=== PATIENT | male | born 1960 | race American Indian/Alaskan Native ===

== ENCOUNTER 2017-08-02 15:31 | Emergency (ER) | payer MEDICAID, OTHER ==
[2017-08-02] MEDS ORDERED: Bupivacaine 0.5% 30 ML SDV INFILT ONE (15:32)
[2017-08-02] MEDS ORDERED: Diphtheria,Pertussis(Acell),Tetanus Vaccine 0.5 ML SDV IM ONE (15:38)
[2017-08-02] MEDS ORDERED: cefTRIAXone 1,000 MG VIAL IM ONE (15:39)
--- NOTE | 2017-08-02 15:45 | EDM.PDOC ---
ED HPI GENERAL MEDICAL PROBLEM - General Time Seen by Provider: 08/02/17 15:31 Source of Information: Reports: Patient, Family History Limitations: Reports: No Limitations - History of Present Illness INITIAL COMMENTS - FREE TEXT/NARRATIVE: 57 y.o.w.f. came to the ed with his SO after he injured his left thumb on a table saw at home cutting escal[place]. No other acute medical issues. No N/V/D BP 127/67 Temp 36.9 Pulse ox 95 RR 18 Onset: Today Onset Date: 08/02/17 Onset Time: 15:00 Duration: Minutes:, Intermittent Location: Reports: Upper Extremity, Left Quality: Reports: Ache, Burning, Dull, Pressure, Stabbing, Throbbing Severity: Severe Improves with: Reports: None Worsens with: Reports: Movement Context: Reports: Trauma Associated Symptoms: Reports: No Other Symptoms right thumb Pain Score (Numeric/FACES): 10 - Related Data Allergies Allergy/AdvReac Type Severity Reaction Status Date / Time No Known Allergies Allergy Verified 08/02/17 15:44 Home Meds: Home Meds Cephalexin 500 mg PO Q6HR #20 tablet 08/02/17 [Rx] Hydrocodone/Acetaminophen [Hydrocodon-Acetaminophen 5-325] 1 - 2 tab PO Q4HR PRN #20 tablet 08/02/17 [Rx] Past Medical History Musculoskeletal History: Reports: Osteoarthritis Social & Family History - Tobacco Use Smoking Status *Q: Current Every Day Smoker Years of Tobacco use: 20 Packs/Tins Daily: 1 Used Tobacco, but Quit: No Second Hand Smoke Exposure: No - Recreational Drug Use Recreational Drug Use: No Review of Systems - Review of Systems Review Of Systems: See Below Constitutional: Reports: No Symptoms Eyes: Reports: No Symptoms Ears: Reports: No Symptoms Nose: Reports: No Symptoms Mouth/Throat: Reports: No Symptoms Respiratory: Reports: No Symptoms Cardiovascular: Reports: No Symptoms GI/Abdominal: Reports: No Symptoms Genitourinary: Reports: No Symptoms Musculoskeletal: Reports: Hand Pain Skin: Reports: Wound (leftthumb) Neurological: Reports: Paresthesia (left thumb) Psychiatric: Reports: No Symptoms ED EXAM, GENERAL - Physical Exam Exam: See Below Exam Limited By: No Limitations General Appearance: Alert, WD/WN, Mild Distress Eye Exam: Bilateral Eye: Normal Inspection Ears: Normal External Exam Ear Exam: Bilateral Ear: Auricle Normal Nose: Normal Inspection Throat/Mouth: Normal Inspection Head: Atraumatic Neck: Normal Inspection, Supple Respiratory/Chest: No Respiratory Distress Cardiovascular: Normal Peripheral Pulses, Regular Rate, Rhythm, No Edema, No Gallop, No JVD, No Murmur Peripheral Pulses: 1+: Femoral (L), Femoral (R) GI/Abdominal: Normal Bowel Sounds, Soft, Non-Tender, No Organomegaly (Male) Exam: Deferred Rectal (Males) Exam: Deferred Back Exam: Normal Inspection, Full Range of Motion Extremities: Normal Inspection, Normal Range of Motion, Non-Tender Neurological: Alert, Oriented, CN II-XII Intact, Normal Cognition, Normal Gait Psychiatric: Normal Affect, Normal Mood Skin Exam: Warm, Dry, Wound/Incision (left thumb, distal phalanx) Lymphatic: No Adenopathy Course - Vital Signs Text/Narrative:: 57 y.o.w.f. came to the ed with his SO after he injured his left thumb on a table saw at home cutting escal[employer]. No other acute medical issues. No N/V/D BP 127/67 Temp 36.9 Pulse ox 95 RR 18 PE: Partial amputation left distal phalanx of left thumb Imaging: Left thumb: open comminuted Fx, distal phalanx Impression: Open comminuted Fx Left thumb, distal phalanx soft tissue amputation Consultation: Dr. Bowie, Surgeon: Will see pt in the ed and will repair hand Tx: Digital Block with Marcain, Rocephin, Morphin. TD, wound repair done by Dr. Bowie. Digital Block was set by me using 4 mg marcain Reexam: improved Plan: D/C with instructions Pt was discharged by dr. Bowie Last Recorded V/S: Last Vital Signs Temp 36.8 C 08/02/17 16:00 Pulse 68 08/02/17 18:00 Resp 17 08/02/17 18:00 BP 123/70 08/02/17 18:00 Pulse Ox 98 08/02/17 18:00 - Orders/Labs/Meds Meds: Medications Discontinued Medications Generic Name Dose Route Start Last Admin Trade Name Kevinq PRN Reason Stop Dose Admin Ceftriaxone Sodium 1,000 mg 08/02/17 15:39 08/02/17 15:57 Rocephin IM 08/02/17 15:40 1,000 mg ONETIME ONE Administration Diphtheria/Tetanus/Acell Pertussis 0.5 ml 08/02/17 15:38 08/02/17 15:55 Adacel IM 08/02/17 15:39 0.5 ml .ONCE ONE Administration Morphine Sulfate 2 mg 08/02/17 16:32 08/02/17 16:43 Morphine IVPUSH 08/02/17 16:33 2 mg ONETIME ONE Administration Departure - Departure Time of Disposition: 18:05 Disposition: Home, Self-Care 01 Condition: Good Clinical Impression: Thumb fracture Qualifiers: Encounter type: initial encounter Fracture type: open Phalanx: distal Fracture alignment: displaced Laterality: left Qualified Code(s): S62.522B - Displaced fracture of distal phalanx of left thumb, initial encounter for open fracture - Discharge Information Prescriptions: Hydrocodone/Acetaminophen [Hydrocodon-Acetaminophen 5-325] 1 - 2 tab PO Q4HR PRN #20 tablet PRN Reason: Pain Cephalexin 500 mg PO Q6HR #20 tablet Instructions: Wound Infection, Sutured Wound Care Referrals: PCP,None [Primary Care Provider] - Zachary Muller MD [Physician] - (in 2 days at clinic) Forms: ED Department Discharge Additional Instructions: Follow up with Dr. uMller on Monday. Take the pain medication as directed. Keep your heart elevated.
[2017-08-02] MEDS ORDERED: Morphine 2 MG/ML Syringe IVPUSH ONE (16:32)
[2017-08-02] MEDS ORDERED: Acetaminophen/HYDROcodone 325-5 MG Tab PO ONE (18:02)
[2017-08-02 18:56] VITALS: BP 123/70
--- NOTE | 2017-08-04 08:01 | CR ---
INDICATION: Table saw injury to left thumb. LEFT THUMB: Three views of the left thumb revealed evidence of severe avulsion injury at the tip of the thumb with comminuted fracture of the shaft and ungual tuft. Separation of the shaft and ungual tuft is noted, producing deformity. Separation is approximately 3-4 mm along one portion of the fracture line. Degenerative changes are noted at the first metacarpocarpal joint and to a minimal extent at the interphalangeal joint of the thumb. MTDD
--- NOTE | 2017-08-04 10:37 | ER ---
DATE SEEN: 08/02/2017 HISTORY OF PRESENT ILLNESS: This 57-year-old male was using a saw, doing a home construction project, when he sustained a laceration to his left thumb. He presents for management of this. The patient has had a moderate amount of bleeding and pain with this. He has received a digital block, which is helping to control his pain. X-ray of the thumb has been taken that shows some tissue loss in the area of the thumb nail. The distal phalanx shows a fracture, but alignment is relatively satisfactory, and there does not appear to be any loss of length. PAST MEDICAL HISTORY: Indicates that he is generally healthy. ALLERGIES: He has no known drug allergies. PAST SURGICAL HISTORY: He has never had prior major surgery on his extremities. PHYSICAL EXAMINATION: Examination shows, on the left thumb, tissue loss of approximately 75% of the nail and underlying nail bed. This extends down into the tissue near the bone, but the bone appears to be solid in this area. There is a laceration extending to the side of the thumb at the base of the injury, which corresponds to the base of the nail. This was 1.5 cm in length. The pad of the thumb and the more proximal portion of the digit is uninjured, and there is no other evidence of injury. PLAN: Digital block is reinforced, and the thumb is thoroughly cleansed and scrubbed with dilute Betadine solution, cleaning the area thoroughly for an extended period of time. After assessing the thumb and considering options, it was decided to repair the laceration off to the side, which was performed with interrupted 4-0 Prolene. This brought the end of the thumb into an anatomic position, and the area of tissue loss is left to hopefully fill in by secondary intention. No tissue was removed in order to preserve maximum tissue protection over the bone. Antibiotic ointment and sterile dressing were placed. The patient received a tetanus booster and IV antibiotics while in the emergency room, and prescriptions for cephalexin 500 mg q.i.d. for 5 days, as well as hydrocodone for pain, are provided to the patient. He will follow up with me in the outpatient clinic in 2 days for recheck. /[id number] VU/YISEL
== END 2017-08-02 18:20 | disposition home or self-care (01) ==
LOC: FB.ED 15:31
DX: S62.522B Displaced fracture of distal phalanx of left thumb, initial encounter for open fracture (principal); F17.210 Nicotine dependence, cigarettes, uncomplicated; W29.8XXA Contact with other powered hand tools and household machinery, initial encounter; Y92.009 Unspecified place in unspecified non-institutional (private) residence as the place of occurrence of the external cause
CPT/HCPCS: 12001; 73140; 90472; 90715; 96372; 96374; 99283; A9270; J0696; J2270

== ENCOUNTER 2020-02-22 18:02 | Emergency (ER) | payer MEDICAID ==
[2020-02-22] MEDS ORDERED: Lidocaine 1% with EPINEPHrine 1:100,000 20 ML MDV INFILT ONE (18:03)
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
[2020-02-22 18:28] VITALS: BP 154/89; PULSE 87
[2020-02-22] MEDS ORDERED: Cephalexin 500 MG Cap PO ONE (19:17)
== END 2020-02-22 19:25 | disposition home or self-care (01) ==
LOC: FB.ED 18:02
DX: S01.83XA Puncture wound without foreign body of other part of head, initial encounter (principal); T75.4XXA Electrocution, initial encounter; M95.2 Other acquired deformity of head; I10 Essential (primary) hypertension; F17.200 Nicotine dependence, unspecified, uncomplicated; W86.8XXA Exposure to other electric current, initial encounter
CPT/HCPCS: 70450; 99283-25